=== PATIENT | male | born 1980 | race Two or more races ===

== ENCOUNTER 2019-07-31 03:16 | Emergency (ER) | payer OTHER ==
[2019-07-31 03:23] VITALS: BP 156/84
--- NOTE | 2019-07-31 03:42 | ER Document Report ---
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 Patient actually was seen here for the initial blood draw, he was told to come back reportedly in 4 weeks for his second draw. He states that he is supposed be getting paperwork for primary care follow-up and additional testing but this did not come yet so he was directed to come here. He is currently on antiviral therapy. He denies any current symptoms, he states on the first 1 to 2 days of antiviral therapy he had some nausea and lightheadedness but he has not had any since and he has been doing well for weeks. He denies any other complaints. - CONSTITUTIONAL Constitutional: DENIES: Fever, Chills Past Medical History - General Information source: Patient - Social History Smoking Status: Former Smoker Frequency of alcohol use: Occasional Drug Abuse: None Lives with: Family Family History: Reviewed & Not Pertinent Patient has homicidal ideation: No - Immunizations Immunizations up to date: Yes Hx Diphtheria, Pertussis, Tetanus Vaccination: Yes Vertical Provider Document - CONSTITUTIONAL General Appearance: WD/WN, No Apparent Distress - HEENT HEENT: Atraumatic, Normocephalic - NECK Neck: Normal Inspection - RESPIRATORY Respiratory: Breath Sounds Normal, No Respiratory Distress - CARDIOVASCULAR Cardiovascular: Regular Rate, Regular Rhythm - GI/ABDOMEN Gastrointestinal: Abdomen Soft, Abdomen Non-Tender - BACK Back: Normal Inspection - MUSCULOSKELETAL/EXTREMETIES Musculoskeletal/Extremeties: MAEW, FROM, Non-Tender - NEURO Level of Consciousness: Awake, Alert, Appropriate - DERM Integumentary: Warm, Dry, No Rash Course - Re-evaluation Re-evalutation: I called and spoke with the laboratory, they recommended/confirmed the tests for patient have performed today. - Vital Signs Vital signs: Temp Pulse Resp BP Pulse Ox 97.9 F 68 17 156/84 H 98 07/31/19 03:23 07/31/19 03:21 07/31/19 03:21 07/31/19 03:21 07/31/19 03:21 Discharge - Discharge Clinical Impression: Needlestick injury accident Condition: Stable Disposition: HOME, SELF-CARE Additional Instructions: You have completed your second series of blood testing after needlestick exposure. Please follow-up with primary care for the completion of your testing and monitoring. Return to the emergency department for any concerning symptoms or something is not right. Referrals: MAURISIO SCHNEIDER PA [Primary Care Provider] - Follow up as needed
== END 2019-07-31 03:51 | disposition home or self-care (01) ==
LOC: ER 03:16
DX: T75.89XD Other specified effects of external causes, subsequent encounter (principal); W46.0XXD Contact with hypodermic needle, subsequent encounter; Y99.0 Civilian activity done for income or pay
CPT/HCPCS: 36415; 86701; 86706; 87521; 99283